=== PATIENT | male | born 1980 | race Caucasian/White ===

== ENCOUNTER 2025-08-11 12:13 | Inpatient (IN) | payer BC, SELFPAY ==
[2025-08-11] VITALS (10 sets, daily range): BP systolic 116–138; BP diastolic 89–104; PULSE 76–103; RESP 13–22; TEMP 35.9–36.8; O2SAT 96–100; BMI 25.4
--- NOTE | ~2025-08-11 | XR_ITS ---
Examination: XR chest 1V portable Clinical History: R PTX Comparison: 1 day prior Technique: Portable AP Findings: Heart size normal. Right chest tube remains in place without pneumothorax identified. Right lateral chest wall subcutaneous emphysema persists. Left lung clear. No acute bony abnormality. IMPRESSION: 1. No change or pneumothorax identified. Reviewed, dictated and finalized at location R. ATIENT DIETITIAN
--- NOTE | ~2025-08-11 | XR_ITS ---
EXAMINATION: XR chest 1V portable DATE: 08/14/2025 10:48 INDICATION: Status post right chest tube removal TECHNIQUE: frontal view of the chest was obtained. COMPARISON: Chest radiograph dated 08/14/2025 at 6:00 AM FINDINGS: Interval removal of the right chest tube. There is persistent small amount of subcutaneous emphysema along the lateral right chest wall. Tiny pneumothorax at the right costophrenic angle. No airspace opacities, pulmonary edema, pleural effusion or left-sided pneumothorax. The cardiomediastinal silhouette is normal. IMPRESSION: 1. Very small residual right pneumothorax post chest tube removal. Reviewed, dictated and finalized at location A. ECHNICIAN
--- NOTE | ~2025-08-11 | XR_ITS ---
EXAMINATION: XR chest 1V portable COMPARISON: No comparisons available. HISTORY: f/u PTX FINDINGS: The lungs are clear, no effusion. No pneumothorax. Heart is normal size. Mediastinal and hilar contours are within normal limits. Bony thorax no acute abnormality. Miscellaneous: Right chest tube terminates in the lung apex. Minimal right-sided subcutaneous air noted. Impression: Chest tube placement detailed above. No pneumothorax Reviewed, dictated and finalized at location P. METRIST ASSISTANT Impression: Chest tube placement detailed above. No pneumothorax
--- NOTE | ~2025-08-11 | XR_ITS ---
Examination: XR chest 2V Clinical History: sob Comparison: None Technique: PA and Lateral Findings: Cardiomediastinal silhouette normal size and configuration. Massive pneumothorax right side with complete collapse of lung. Minimal midline shift. Left lung clear. No acute bony abnormality. IMPRESSION: 1. Massive pneumothorax right lung. Reviewed, dictated and finalized at location R. ER SMOKING PIPE
--- NOTE | ~2025-08-11 | XR_ITS ---
EXAMINATION: XR chest 1V portable DATE: 08/13/2025 05:28 INDICATION: Pneumothorax TECHNIQUE: A single frontal view of the chest was obtained. COMPARISON: August 12 exam FINDINGS: Right apical chest tube remains in place. No pneumothorax seen on today's exam. Emphysematous changes in the subcutaneous soft tissues of the right chest wall again noted. Heart size normal. The remainder the exam is stable. IMPRESSION: 1. No pneumothorax seen on today's exam. Reviewed, dictated and finalized at location A. ICIAN IN PRIVATE PRACTICE
--- NOTE | ~2025-08-11 | XR_ITS ---
EXAMINATION: XR chest 1V portable DATE: 08/12/2025 05:42 INDICATION: Right-sided pneumothorax TECHNIQUE: A single frontal view of the chest was obtained. COMPARISON: August 11 chest x-ray FINDINGS: Right-sided chest tube appears to been withdrawn slightly. Tiny amount of pleural air at the right lung base. Emphysema in the right chest wall again noted. The remainder the exam is unremarkable. IMPRESSION: 1. Stable exam compared to yesterday. Tiny residual pneumothorax in the right lung base. Reviewed, dictated and finalized at location A. ICAL STOCK INSPECTOR IMPRESSION: 1. Stable exam compared to yesterday. Tiny residual pneumothorax in the right l nabil base.
--- NOTE | ~2025-08-11 | XR_ITS ---
EXAMINATION: XR chest-chest tube insert/pos, 08/11/2025 11:44 SOFTWARE ENGINEERING MANAGER HISTORY: tube placement COMPARISON: No comparisons available. Technique: Single view. Findings: Minimal right basilar atelectasis. Trace right basilar pneumothorax identified. Heart is normal size. Mediastinal and hilar contours are within normal limits. Bony thorax no acute abnormality. Right chest tube terminates in the lung apex. Small amount of right-sided subcutaneous air. Impression: Chest tube placement as above. Trace right basilar pneumothorax Reviewed, dictated and finalized at location P. WARE ENGINEERING MANAGER Impression: Chest tube placement as above. Trace right basilar pneumothorax
--- NOTE | 2025-08-11 12:15 | ECG_ITS ---
Test Date: 2025-08-11 12:20:23 Measurements Intervals [place] Rate: 98 P: 95 AR: 144 QRS: 66 QRSD: 86 T: 81 QT: 326 QTc: 418 Interpretive Statements SINUS RHYTHM Nonspecific ST segment abnormality Electronically Signed On 08-12-2025 00:09:16 MALARIOLOGIST by Jozef Garg D.O
[2025-08-11 12:37] LABS: Hematocrit 47.6 % (42.0-52.0); Hemoglobin 15.9 g/dL (14.0-18.0); Immature Granulocyte Percent A 0.2 % (0-0.5); Lymphocytes Absolute Auto 2.27 K/mm3 (0.9-3.2); Mean Corpuscular HGB Conc 33.4 g/dl (32-36); Mean Corpuscular Hemoglobin 30.0 pg (26-34); Mean Corpuscular Volume 89.8 fl (80-100); Nucleated Red Blood Cells Absolute Auto 0.000 K/mm3 (0.0-0.012); Nucleated Red Blood Cells Perc 0.0 % (0.0-0.2); Platelet Count Result 411 k/mm3 (150-375); Red Blood Count 5.30 M/mm3 (4.6-6.20); White Blood Count 9.6 K/mm3 (4.5-10.0)
[2025-08-11 12:49] LABS: Alanine Aminotransferase 22 U/L (6-50); Albumin Level 4.8 g/dL (3.5-5.1); Alkaline Phosphatase 109 U/L (38-126); Anion Gap 10 mmol/L (4-12); Aspartate Amino Transferase 32 U/L (17-59); Bilirubin,Total 1.1 mg/dL (0.2-1.3); Blood Urea Nitrogen 14 mg/dL (9-20); Calcium 9.4 mg/dL (8.4-10.2); Carbon Dioxide 26 mmol/L (22-30); Chloride 107 mmol/L (98-107); Estimated CRCL calculation 85 ml/min; Estimated Glomerular Filt Rate > 60; Glucose 114 mg/dL (65-110); Potassium 3.8 mmol/L (3.4-5.0); Sodium 143 mmol/L (137-145); Total Protein 8.0 g/dL (6.3-8.2)
--- OUTSIDE RECORDS SUMMARY | 2025-08-11 12:58 | XMS_ITS ---
Author Organization Unknown ENCOUNTERS Encounter Performer Location Date Diagnosis Diagnosis Status Emergency [facility] [address] [place] [address] [id number] Pre Admit [facility] [address] [place] [address] [phone] *Note: Encounters from your own facility or health system may be excluded. Allergies, Adverse Reactions, Alerts Allergen Type Severity Identification Date Medications Name Date Quantity Days Supplied GPI Number
[2025-08-11 12:59] LABS: Troponin I < 0.012 ng/mL (0.000-0.034)
[2025-08-11] MEDS: SODIUM CHLORIDE 0.9% IV 1,000 ML 125 ML IV CONT (14:08)
[2025-08-11] MEDS: ONDANSETRON INJ 4 MG/2 ML VIAL IV PUSH (14:09)
[2025-08-11] MEDS: MORPHINE SULFATE (*CRX) 4 MG/ML INJ IV PUSH (14:10)
[2025-08-11] MEDS: diazePAM INJ (*CRX) 10 MG/2 ML SYRINGE 2.5 MG IV PUSH (14:13)
--- NOTE | 2025-08-11 15:11 | ECG_ITS ---
Test Date: 2025-08-11 15:18:02 Measurements Intervals [place] Rate: 81 P: 57 NE: 146 QRS: 11 QRSD: 89 T: 33 QT: 355 QTc: 414 Interpretive Statements SINUS RHYTHM Electronically Signed On 08-12-2025 00:09:41 SCLEROSCOPE TESTER by Jozef Garg D.O
[2025-08-11 15:47] LABS: Troponin I 0.019 ng/mL (0.000-0.034)
--- NOTE | 2025-08-11 15:48 | ED.SOB ---
HPI - SOB/Dyspnea General Chief Complaint: Shortness of Breath/Dyspnea Stated Complaint: SHORT OF BREATH X1D Time Seen by Provider: 08/11/25 12:24 Source: patient Mode of arrival: ambulatory Limitations: no limitations History of Present Illness HPI Narrative: 45-year-old relatively healthy here with a complains of right-sided chest pain associated with mild shortness of breath. Patient states that he had a coughing spell a yesterday and ever since then he has been having some difficulty breathing and right-sided pain. Seen no previous history of COPD or asthma. No history of puncture lung MD elicited complaint: shortness of breath Related Data Allergies Allergy/AdvReac Type Severity Reaction Status Date / Time No Known Allergies Allergy Verified 08/11/25 12:21 PMFSH Family History Family History Grandparent Family history of malignant neoplasm Mother Carcinoma of colon Other Family history of malignant neoplasm of breast in first degree relative Social History Social History Alcohol intake: current Exam Narrative: GENERAL: Well-appearing, well-nourished, and in no acute distress. HEAD: Normocephalic, atraumatic. EYES: PERRLA and EOMI. ENT: Nares clear, no rhinorrhea or epistaxis. Mucous membranes moist. NECK: Supple. CHEST: No breath sounds on the right. No respiratory distress. HEART: Regular rate and rhythm. No murmur heard. Normal peripheral pulses. ABDOMEN: Soft, nontender, nondistended, normal active bowel sounds. EXTREMITIES: Normal range of motion. No edema. SKIN: Warm, dry, no rash. NEURO: No focal deficits. Alert and oriented x3. PSYCH: Normal mood and affect. Course Vital Signs Vital signs: Vital Signs Temperature 36.6 C 08/11/25 12:17 Pulse Rate 103 H 08/11/25 12:17 Respiratory Rate 19 08/11/25 12:17 Pulse Oximetry 96 08/11/25 12:17 Oxygen Delivery Room Air 08/11/25 12:17 Temperature 36.6 C 08/11/25 12:17 Pulse Rate 91 08/11/25 14:45 Respiratory Rate 22 H 08/11/25 14:45 Blood Pressure 134/104 H 08/11/25 14:45 Pulse Oximetry 100 08/11/25 14:45 Oxygen Delivery Room Air 08/11/25 12:24 Procedures Chest Tube Chest Tube 1: Chest Tube Date: 08/11/25 Chest Tube Location: right, anterior axillary line and fourth interspace Tube Type: cook cath Chest Tube Prep: Yes betadine prep and sterile drapes applied Anesthetic: lidocaine 2% and with epi Amount of anesthesia used (mL): 10 Procedure: sterile prep/drape Post Procedure: sutured to skin Tube Drainage: none Post Procedure CXR?: Yes Post Procedure: post CXR reviewed, placement appropriate and pneumo resolved Patient Tolerated Procedure: Yes MDM - SOB/Dyspnea Differential Diagnosis Differential diagnosis: Likely acute exacerbation of chronic obstructive airways disease, community acquired pneumonia and asthma with exacerbation Medical Records Attestation: I reviewed the patient's medical records. Lab Data Attestation: I reviewed the patient's lab results. 08/11/25 12:25 08/11/25 12:25 Labs: Lab Results 08/11/25 08/11/25 08/11/25 Range/Units 12:25 12:25 15:17 WBC 9.6 (4.5-10.0) K/mm3 RBC 5.30 (4.6-6.20) M/mm3 Hgb 15.9 (14.0-18.0) g/dL Hct 47.6 (42.0-52.0) % MCV 89.8 (80-100) fl MCH 30.0 (26-34) pg MCHC 33.4 (32-36) g/dl RDW 12.9 (11.5-14.5) % Plt Count 411 H (150-375) k/mm3 MPV 9.5 (7.4-10.4) fl Immature Gran % (Auto) 0.2 (0-0.5) % Neut % (Auto) 64.5 (45.5-73.1) % Lymph % (Auto) 23.7 (18.3-44.2) % [place] % (Auto) 8.2 (2.6-8.5) % Eos % (Auto) 2.7 (0-4.4) % Baso % (Auto) 0.7 (0.2-1.2) % Lymph # (Auto) 2.27 (0.9-3.2) K/mm3 [place] # (Auto) 0.8 H (0.1-0.6) K/mm3 Eos # (Auto) 0.3 (0-0.3) K/mm3 Baso # (Auto) 0.1 (0.0-0.1) K/mm3 Abs Immat Gran (auto) 0.02 (0.00-0.031) K/mm3 Absolute Neuts (auto) 6.2 (1.3-6.7) K/mm3 Absolute Nucleated RBC 0.000 (0.0-0.012) K/mm3 Nucleated RBC % 0.0 (0.0-0.2) % Sodium 143 (137-145) mmol/L Potassium 3.8 (3.4-5.0) mmol/L Chloride 107 (98-107) mmol/L Carbon Dioxide 26 (22-30) mmol/L Anion Gap 10 (4-12) mmol/L BUN 14 (9-20) mg/dL Creatinine 0.96 (0.7-1.3) mg/dL Estim Creat Clear Calc 85 ml/min Estimated GFR > 60 (59 - ) Glucose 114 H (65-110) mg/dL Calcium 9.4 (8.4-10.2) mg/dL Total Bilirubin 1.1 (0.2-1.3) mg/dL AST 32 (17-59) U/L ALT 22 (6-50) U/L Alkaline Phosphatase 109 (38-126) U/L Troponin I < 0.012 Cancelled 0.019 D (0.000-0.034) ng/mL Total Protein 8.0 (6.3-8.2) g/dL Albumin 4.8 (3.5-5.1) g/dL Imaging Data Radiologist's impression: ITS Impressions Chest X-Ray 08/11/25 13:08 IMPRESSION: 1. Massive pneumothorax right lung. Chest X-Ray 08/11/25 15:00 Impression: Chest tube placement as above. Trace right basilar pneumothorax ECG Data EKG #1: ECG completion date: 08/11/25 ECG completion time: 12:20 EKG Interpretation: normal rate (98), sinus rhythm, no ectopy, no ST changes, normal QRS and normal QT EKG #2: ECG completion date: 08/11/25 ECG completion time: 15:18 EKG Interpretation: normal rate, sinus rhythm, no ectopy, no ST changes, normal QRS and normal QT Critical Care Time Critical Care Time Critical Care Time: Yes Total Critical Care Time: 45 Discharge Plan Discharge Clinical Impression: Pneumothorax on right Patient Disposition: Still a Patient Condition: Stable Patient Language: Slovak Follow-up/Referrals: PHYSICIAN,SUPERVISOR BORDER DEPARTMENT [Primary Care Provider, Internal Medicine] Time of Disposition: 15:49
--- NOTE | 2025-08-11 16:30 | WPCEDHO ---
ED Hand Off Checklist All vitals saved: YES IV Site documented:YES All med administrations documented: YES Triage Note Triage Note Patient presents with SOB since 08/11/25 12:17 yesterday. states that he coughed one time and had sudden onset of right sided chest pain and has been sob since. sob worse with activity. patient states that he does cough up a clear/white sputum at times. patient is alert and oriented x4. speaking in complete sentences. Allergies No Known Allergies Allergy (Verified 08/11/25 12:21) Family History (Last Reviewed 08/11/25 @ 15:54 by Refugio Leach MD) Grandparent Family history of malignant neoplasm Mother Carcinoma of colon Other Family history of malignant neoplasm of breast in first degree relative Active Medications including assessments/comments Sodium Chloride (Normal Saline Iv) 1,000 mls @ 125 mls/hr IV CONT .Q8H STA Stop: 08/11/25 22:02 Last Admin: 08/11/25 14:08 Dose: 125 mls/hr Documented By: HUSSAIN Infusion/Titration Document 08/11/25 14:08 HUSSAIN (Rec: 08/11/25 14:08 HUSSAIN [id number]) Intake IV Site Peripheral Access Right Antecubital Container Volume 1,000 Waste Amount 0 Dosing Infusion Rate 125 Cumulative Dose Not Applicable Increase/Decrease Started Elapsed Time Elapsed Time ( 0m minutes) Administered/Completed Medications Discontinued Medications Diazepam (Diazepam Inj (*Crx) 10 Mg/2 Ml Syringe) 2.5 mg IV PUSH ONCE ONE Stop: 08/11/25 14:02 Last Admin: 08/11/25 14:13 Dose: 2.5 mg Documented By: HUSSAIN Lidocaine/Epinephrine (Lido 2%/Epinephrine 1:100,000 20 Ml Vial) 15 ml INFILTRATE ONCE ONE Stop: 08/11/25 14:04 Last Admin: 08/11/25 15:12 Dose: Not Given Documented By: HUSSAIN Non-Admin Reason: MD Administered Morphine Sulfate (Morphine Sulfate (*Crx) 4 Mg/Ml Inj) 4 mg IV PUSH ONCE STA Stop: 08/11/25 14:02 Last Admin: 08/11/25 14:10 Dose: 4 mg Documented By: HUSSAIN Ondansetron HCl (Ondansetron Inj 4 Mg/2 Ml Vial) 4 mg IV PUSH ONCE STA Stop: 08/11/25 14:02 Last Admin: 08/11/25 14:09 Dose: 4 mg Documented By: HUSSAIN Interventions/Assessments Cardiac Monitoring Start: 08/11/25 12:14 Freq: Status: Active Protocol: Document 08/11/25 12:26 KED (Rec: 08/11/25 12:26 KED [id number]) Lye Peel Operator Assessment Lye Peel Operator Yes Applied Pulse Rate (60-100) 99 EKG Rythm Sinus Rhythm IV / Saline Lock, Insert Start: 08/11/25 12:15 Freq: STAT Status: Active Protocol: Document 08/11/25 12:21 JCK (Rec: 08/11/25 12:21 JCK [id number]) IV Assessment Peripheral Access Right Antecubital IV Catheter Access Initiated IV Insertion Date 08/11/25 IV Insertion Time 12:21 Catheter Gauge 18 IV Insertion 1 Attempts IV Site Assessment WNL IV Care and WNL Maintenance PA: Cardiovascular Assessment Start: 08/11/25 12:14 Freq: Status: Active Protocol: Document 08/11/25 12:24 HUSSAIN (Rec: 08/11/25 12:25 KED [id number]) Cardiovascular Assessment Cardiovascular Chest Pain,Dyspnea Symptoms Chest Pain Assessment Chest Pain Intensity 4 Chest Pain Location Right Chest Description and Dull Symptoms Chest Pain Duration > 6 Hours Precipitating Coughing Factors Comments since yesterday around 1500 PA: Respiratory Assessment Start: 08/11/25 12:14 Freq: Status: Active Protocol: Document 08/11/25 12:24 KEVenita (Rec: 08/11/25 12:25 KED [id number]) Respiratory Assessment Symptoms Cough,Shortness of Breath at Rest,Shortness of Breath With Exertion Effort Short of Breath Pattern Tachypnea Depth Normal Chest Expansion Symmetrical Adult Capillary Normal/Less than 2 Seconds Refill Left Throughout Phase Inspiratory & Expiratory Lung Sounds Clear Right Throughout Phase Inspiratory & Expiratory Lung Sounds Diminished Cough Description Ineffective,Productive Cough Frequency Intermittent Oxygen Delivery Oxygen Delivery Room Air Pulse Oximetry (90- 97 100) Last Vital Signs Temperature 97.9 F 08/11/25 16:21 Pulse Rate 76 08/11/25 16:21 Respiratory Rate 13 08/11/25 16:21 Pulse Oximetry 99 08/11/25 16:21 Blood Pressure 134/101 H 08/11/25 16:21 Blood Pressure Mean 112 08/11/25 16:21 Oxygen Delivery Room Air 08/11/25 12:24 Weight 78.1 kg 08/11/25 12:17 Last Result - Abnormals Only Plt Count 411 k/mm3 (150-375) H 08/11/25 12:25 [place] # (Auto) 0.8 K/mm3 (0.1-0.6) H 08/11/25 12:25 Glucose 114 mg/dL (65-110) H 08/11/25 12:25 Most Recent Suicide Severity Rating Suicide Severity Rating NO RISK INDICATED 08/11/25 12:17
--- NOTE | 2025-08-11 17:10 | ADMGEN ---
This patient, Pepe Campbell, was admitted to 2 Medical Room 241-01. Patient/family oriented to hospital policies and general routines including ID bracelet, bed and alarms, visiting hours, pain management, procedures, bathroom and other care routines, personal items, smoking policy, room service/diet, and visiting hours. Information on how to activate the Rapid Response Team has been discussed. Patient/Family are encouraged to report perceived risks to care and to ask questions if they do not understand what they are told or what they should do.
[2025-08-11] MEDS: oxyCODONE HCL (*CRX) 5 MG TAB IR PO ×2 (18:08→22:35)
[2025-08-11] MEDS: SODIUM CHLORIDE 0.9% IV 1,000 ML 80 ML IV CONT (22:28)
[2025-08-12] VITALS (7 sets, daily range): BP systolic 125–134; BP diastolic 82–87; PULSE 63–81; RESP 17–18; TEMP 36.4–36.8; O2SAT 97–100
[2025-08-12] MEDS: IBUPROFEN IV 800 MG/200 ML 800 MG/200 ML BAG 400 MG IVPB ×4 (00:39→22:29)
[2025-08-12] MEDS: oxyCODONE HCL (*CRX) 2.5 MG TAB IR PO (06:17)
--- NOTE | 2025-08-12 09:49 | PM.IMHP ---
H&P: HPI History of Present Illness Date/Time: 08/12/25 09:49 Chief Complaint: Right-sided chest pain Narrative: Patient is a 45-year-old otherwise healthy male who presented to the ED yesterday with 1 day of right-sided chest pain. He states that he has a chronic cough, sometimes productive of phlegm. He coughed once yesterday and noticed immediate right-sided chest pain. Initially, he thought that this was just a pulled muscle. He was able to fall asleep and woke up in the morning with increased pain and associated shortness of breath. He states he felt like he was hyperventilating because it was difficult to take a deep breath. Once in the ED, a chest x-ray demonstrated a massive pneumothorax of the right lung. Chest tube was inserted and patient was admitted to medical-surgical floor for further management by general surgery team. Upon my interview today, patient denies any shortness of breath or pain. Chest tube appears to be functioning properly. Patient denies any trauma to the area. No falls or hits to the chest. Denies any tobacco smoking, but endorses smoking marijuana. He states that he smokes roughly 2 g of cannabis per week. No history of COPD or emphysema. No fever, chills, nausea/vomiting, or any other systemic symptoms. [facility] Family History Family History Grandparent Family history of malignant neoplasm Mother Carcinoma of colon Other Family history of malignant neoplasm of breast in first degree relative Social History Social History Smoking status: Never smoker Alcohol intake: former Substance use type: marijuana Other substance usage details: daily use Lack of Transportation: No Lack of Food: Never True Current Housing: I Have Housing Concerned About Future Housing: No Difficulty Paying Gas/Electric Bills: No Difficulty Paying for Meds: No Currently Unemployed: No Education: Associate Degree Difficulty w/ Childcare or Family Care: No Spiritual care concerns: No Meds Home Medications and Allergies Home Medications ?Medication ?Instructions ?Recorded ?Confirmed ?Type No Home Medications 08/11/25 08/11/25 History Allergies Allergy/AdvReac Type Severity Reaction Status Date / Time No Known Allergies Allergy Verified 08/11/25 17:35 Vital Signs Vital Signs - 24 hr 08/11/25 12:17 08/11/25 12:24 08/11/25 12:26 Temperature 97.9 F Pulse Rate 103 H 99 Respiratory Rate 19 Blood Pressure Pulse Oximetry 96 97 Oxygen Delivery Room Air Room Air 08/11/25 12:26 08/11/25 13:51 08/11/25 14:45 Temperature Pulse Rate 93 100 91 Respiratory Rate 19 15 22 H Blood Pressure 138/102 H 116/91 H 134/104 H Pulse Oximetry 97 97 100 Oxygen Delivery 08/11/25 16:21 08/11/25 17:01 08/11/25 18:14 Temperature 97.9 F 96.6 F L Pulse Rate 76 89 94 Respiratory Rate 13 21 H 18 Blood Pressure 134/101 H 125/98 H 137/90 Pulse Oximetry 99 99 96 Oxygen Delivery 08/11/25 19:43 08/11/25 20:00 08/11/25 20:00 Temperature 98.2 F Pulse Rate 80 84 Respiratory Rate 18 Blood Pressure 129/89 Pulse Oximetry 98 Oxygen Delivery Room Air 08/12/25 00:00 08/12/25 04:00 08/12/25 04:47 Temperature 98.3 F Pulse Rate 75 63 69 Respiratory Rate 17 Blood Pressure 128/82 Pulse Oximetry 98 Oxygen Delivery Exam Const: General: comfortable and no acute distress Eyes: General: appearance normal, both eyes and all related structures Neck: Neck: supple Chest: Other: Right-sided chest tube in place. Functioning properly with no obvious air leak. Bandage clean and dry. Resp: Effort & Inspection: normal respiratory effort Auscultation: clear to auscultation bilaterally Cardio: Rate: regular rate GI: Inspection: non-distended Skin: General skin exam: normal color and no rashes or lesions noted Neuro: Speech: normal speech Sensory Exam: normal sensation Extrem: General: normal to inspection Psych: Mental Status: mental status grossly normal H&P: Results Labs Labs: Short CBC 08/11/25 Range/Units 12:25 WBC 9.6 (4.5-10.0) K/mm3 Hgb 15.9 (14.0-18.0) g/dL Hct 47.6 (42.0-52.0) % Plt Count 411 H (150-375) k/mm3 [facility] 08/11/25 12:25 Sodium 143 Potassium 3.8 Chloride 107 Carbon Dioxide 26 BUN 14 Creatinine 0.96 Glucose 114 H Calcium 9.4 Cardiac Enzymes 08/11/25 08/11/25 08/11/25 Range/Units 12:25 12:25 15:17 Troponin I < 0.012 Cancelled 0.019 D (0.000-0.034) ng/mL Liver Function 08/11/25 Range/Units 12:25 Total Bilirubin 1.1 (0.2-1.3) mg/dL AST 32 (17-59) U/L ALT 22 (6-50) U/L Alkaline Phosphatase 109 (38-126) U/L Albumin 4.8 (3.5-5.1) g/dL Assessment and Plan Assessment and plan (1) Pneumothorax on right: Code(s): J93.9 - Pneumothorax, unspecified Status: Acute Assessment and Plan: Patient presented to the ED yesterday with 1 day of right-sided chest pain and shortness of breath after coughing. Denies any trauma to the area. No cigarette smoking, but smokes roughly 2 g of cannabis per week. Initial chest x-ray demonstrated a massive pneumothorax to the right lung. Chest tube inserted.Chest x-ray today demonstrated a stable exam compared to previous. Tiny residual pneumothorax in the right lung base. Continue chest tube to suction today. Will plan to place to water seal tomorrow. Plan Discussed patient's case and plan of care with Dr. George.
[2025-08-12] MEDS: ENOXAPARIN 40 MG/0.4 ML SYRINGE SUB-Q (10:13)
[2025-08-13 03:20] VITALS: BP 141/86; PULSE 69; RESP 18; TEMP 36.4; O2SAT 98
[2025-08-13 07:36] VITALS: O2SAT 99
[2025-08-13] MEDS: IBUPROFEN IV 800 MG/200 ML 800 MG/200 ML BAG 400 MG IVPB ×2 (07:36→18:17)
[2025-08-13 08:31] VITALS: O2SAT 97
[2025-08-13] MEDS: ENOXAPARIN 40 MG/0.4 ML SYRINGE SUB-Q (09:06)
--- NOTE | 2025-08-13 09:06 | P.PNGS_ITS ---
Progress Note: A&P Assessment and Plan (1) Pneumothorax on right: Code(s): J93.9 - Pneumothorax, unspecified Status: Acute Assessment and Plan: * CXR this morning showed no residual pneumothorax and chest tube still in good position. No pleural leak on exam. * Put chest tube to water seal and repeat chest x-ray in 1-2 hours. Likely will keep chest tube to water seal today and monitor. Plan Discussed patient's case and plan of care with Dr. George. Subjective Subjective Date/Time Seen: 08/13/25 09:06 Patient reports: no new complaints Interval history: No changes overnight. Patient has some pain at the chest tube site, but no other chest pain. No shortness of breath or difficulty breathing. Exam Const: General: comfortable and no acute distress Chest: Chest palpation & inspection: no crepitus Other: Right lateral chest tube with dressing dry and intact. No air leak. Minimal yellow serous fluid in canister. Resp: Effort & Inspection: normal respiratory effort and no respiratory distress Auscultation: clear to auscultation bilaterally Cardio: Rate: regular rate Rhythm: regular rhythm Objective Data Vital Signs Vital Signs: Vital Signs - 24 hr 08/12/25 10:13 08/12/25 10:13 08/12/25 12:00 Temperature Pulse Rate 69 69 81 Respiratory Rate 17 Blood Pressure Pulse Oximetry 98 Oxygen Delivery Room Air 08/12/25 14:00 08/12/25 19:51 08/12/25 20:00 Temperature 97.8 F 97.6 F Pulse Rate 78 72 Respiratory Rate 18 18 Blood Pressure 134/87 125/87 Pulse Oximetry 100 97 Oxygen Delivery Room Air 08/13/25 03:20 08/13/25 07:36 08/13/25 08:31 Temperature 97.6 F Pulse Rate 69 Respiratory Rate 18 Blood Pressure 141/86 H Pulse Oximetry 98 99 97 Oxygen Delivery Room Air Room Air Intake/Output Intake/Output: Intake & Output 08/10/25 08/11/25 08/12/25 08/13/25 23:59 23:59 23:59 23:59 Intake Total 480 2220 408 Output Total 7555 300 Balance 480 -2255 108 Meds/Results Medications: Active Medications Generic Name Dose Route Start Last Admin Trade Name Freq PRN Reason Stop Dose Admin Acetaminophen 500 mg 08/11/25 17:05 Acetaminophen 500 Mg Tablet PO Q6H PRN Pain Rated 1-3 Enoxaparin Sodium 40 mg 08/12/25 09:00 08/12/25 10:13 Enoxaparin 40 Mg/0.4 Ml Syringe SUB-Q 40 mg DAILY SOPHIE Administration Ibuprofen 800 mg in 200 mls @ 400 mls/hr 08/11/25 17:05 08/13/25 07:36 Caldolor 800 Mg/200 Ml IVPB 400 mls/hr Q6H PRN Administration Breakthrough Pain Rated 1-3 or NPO Morphine Sulfate 1 mg 08/11/25 17:05 Morphine Sulfate (*Crx) 4 Mg/Ml Inj IV PUSH Q2H PRN Breakthrough Pain Rated 4-6 or NPO Morphine Sulfate 2 mg 08/11/25 17:05 Morphine Sulfate (*Crx) 4 Mg/Ml Inj IV PUSH Q2H PRN Breakthrough Pain Rated 7-10 or NPO Ondansetron HCl 4 mg 08/11/25 15:27 Ondansetron Inj 4 Mg/2 Ml Vial IV PUSH Q4H PRN Nausea Oxycodone HCl 2.5 mg 08/11/25 17:05 08/12/25 06:17 Oxycodone Hcl (*Crx) 2.5 Mg Tab Ir PO 2.5 mg Q4H PRN Administration Pain Rated 4-6 Oxycodone HCl 5 mg 08/11/25 17:05 08/11/25 22:35 Oxycodone Hcl (*Crx) 5 Mg Tab Ir PO 5 mg Q4H PRN Administration Pain Rated 7-10 Radiology Results: ITS Impressions Chest X-Ray 08/13/25 07:58 IMPRESSION: 1. No pneumothorax seen on today's exam.
--- NOTE | 2025-08-13 11:50 | PC.NURSE ---
On 08/13/25, the student, [Tomas Correia], provided care and completed [facility] documentation on this patient. I have reviewed the student's documentation and agree with the findings.
[2025-08-13 14:00] VITALS: BP 142/82; PULSE 82; RESP 16; TEMP 36.4; O2SAT 100
[2025-08-13 19:51] VITALS: BP 134/86; PULSE 82; RESP 20; TEMP 37.1; O2SAT 99
[2025-08-14 03:57] VITALS: BP 137/81; PULSE 69; RESP 18; TEMP 36.2; O2SAT 99
[2025-08-14 08:34] LABS: Hematocrit 42.6 % (42.0-52.0); Hemoglobin 14.6 g/dL (14.0-18.0); Immature Granulocyte Percent A 0.2 % (0-0.5); Lymphocytes Absolute Auto 1.48 K/mm3 (0.9-3.2); Mean Corpuscular HGB Conc 34.3 g/dl (32-36); Mean Corpuscular Hemoglobin 30.2 pg (26-34); Mean Corpuscular Volume 88.0 fl (80-100); Nucleated Red Blood Cells Absolute Auto 0.000 K/mm3 (0.0-0.012); Nucleated Red Blood Cells Perc 0.0 % (0.0-0.2); Platelet Count Result 320 k/mm3 (150-375); Red Blood Count 4.84 M/mm3 (4.6-6.20); White Blood Count 8.1 K/mm3 (4.5-10.0)
[2025-08-14] MEDS: ENOXAPARIN 40 MG/0.4 ML SYRINGE SUB-Q (08:43)
[2025-08-14 09:09] LABS: Alanine Aminotransferase 16 U/L (6-50); Albumin Level 4.3 g/dL (3.5-5.1); Alkaline Phosphatase 87 U/L (38-126); Anion Gap 7 mmol/L (4-12); Aspartate Amino Transferase 24 U/L (17-59); Bilirubin,Total 0.9 mg/dL (0.2-1.3); Blood Urea Nitrogen 13 mg/dL (9-20); Calcium 9.3 mg/dL (8.4-10.2); Carbon Dioxide 28 mmol/L (22-30); Chloride 104 mmol/L (98-107); Estimated CRCL calculation 97 ml/min; Estimated Glomerular Filt Rate > 60; Glucose 93 mg/dL (65-110); Potassium 4.1 mmol/L (3.4-5.0); Sodium 139 mmol/L (137-145); Total Protein 7.2 g/dL (6.3-8.2)
[2025-08-14 14:00] VITALS: BP 131/94; PULSE 82; RESP 20; TEMP 36.5; O2SAT 100
--- NOTE | 2025-08-14 14:41 | P.PNGS_ITS ---
Progress Note: A&P Assessment and Plan (1) Pneumothorax on right: Code(s): J93.9 - Pneumothorax, unspecified Status: Acute Assessment and Plan: * Chest tube removed this morning after initial chest x-ray showed no pneumothorax. Repeat chest x-ray showed tiny right pneumothorax at costophrenic angle. I'm not able to even visualize this myself. We spoke with Dr. George and will discharge the patient with strict return instructions and have him follow-up in 2 weeks in our office. Plan Discussed patient's case and plan of care with Dr. George. Subjective Subjective Date/Time Seen: 08/14/25 09:01 Patient reports: no new complaints Interval history: Patient with no changes overnight. No complaints of chest pain or shortness of breath. Only having minimal pain near his chest tube. Exam Const: General: comfortable and no acute distress Orientation/consciousness: patient oriented x3 Chest: Chest palpation & inspection: no crepitus Other: Right lateral chest tube with dressing dry and intact. No air leak. Minimal yellow serous fluid in canister. Suture and chest tube removed with sterile technique and occlusive sterile dressing applied. He tolerated this well. Resp: Effort & Inspection: normal respiratory effort Auscultation: clear to auscultation bilaterally Objective Data Vital Signs Vital Signs: Vital Signs - 24 hr 08/13/25 19:51 08/13/25 20:00 08/14/25 03:57 Temperature 98.7 F 97.2 F L Pulse Rate 82 69 Respiratory Rate 20 18 Blood Pressure 134/86 137/81 Pulse Oximetry 99 99 Oxygen Delivery Room Air 08/14/25 08:45 Temperature Pulse Rate Respiratory Rate Blood Pressure Pulse Oximetry Oxygen Delivery Room Air Intake/Output Intake/Output: Intake & Output 08/11/25 08/12/25 08/13/25 08/14/25 23:59 23:59 23:59 23:59 Intake Total 480 2220 2008 1200 Output Total 4475 1800 300 Balance 480 -2255 208 900 Meds/Results Medications: Active Medications Generic Name Dose Route Start Last Admin Trade Name Freq PRN Reason Stop Dose Admin Acetaminophen 500 mg 08/11/25 17:05 Acetaminophen 500 Mg Tablet PO Q6H PRN Pain Rated 1-3 Enoxaparin Sodium 40 mg 08/12/25 09:00 08/14/25 08:43 Enoxaparin 40 Mg/0.4 Ml Syringe SUB-Q 40 mg DAILY SOPHIE Administration Ibuprofen 800 mg in 200 mls @ 400 mls/hr 08/11/25 17:05 08/13/25 18:47 Caldolor 800 Mg/200 Ml IVPB Infused Q6H PRN Infusion Breakthrough Pain Rated 1-3 or NPO Morphine Sulfate 1 mg 08/11/25 17:05 Morphine Sulfate (*Crx) 4 Mg/Ml Inj IV PUSH Q2H PRN Breakthrough Pain Rated 4-6 or NPO Morphine Sulfate 2 mg 08/11/25 17:05 Morphine Sulfate (*Crx) 4 Mg/Ml Inj IV PUSH Q2H PRN Breakthrough Pain Rated 7-10 or NPO Ondansetron HCl 4 mg 08/11/25 15:27 Ondansetron Inj 4 Mg/2 Ml Vial IV PUSH Q4H PRN Nausea Oxycodone HCl 2.5 mg 08/11/25 17:05 08/12/25 06:17 Oxycodone Hcl (*Crx) 2.5 Mg Tab Ir PO 2.5 mg Q4H PRN Administration Pain Rated 4-6 Oxycodone HCl 5 mg 08/11/25 17:05 08/11/25 22:35 Oxycodone Hcl (*Crx) 5 Mg Tab Ir PO 5 mg Q4H PRN Administration Pain Rated 7-10 Radiology Results: ITS Impressions Chest X-Ray 08/14/25 10:52 IMPRESSION: 1. Very small residual right pneumothorax post chest tube removal. Labs Labs: Laboratory Results - last 24 hr 08/14/25 08:15 WBC 8.1 RBC 4.84 Hgb 14.6 Hct 42.6 MCV 88.0 MCH 30.2 MCHC 34.3 RDW 12.7 Plt Count 320 MPV 9.6 Immature Gran % (Auto) 0.2 Neut % (Auto) 69.8 Lymph % (Auto) 18.2 L [place] % (Auto) 7.5 Eos % (Auto) 3.4 Baso % (Auto) 0.9 Lymph # (Auto) 1.48 [place] # (Auto) 0.6 Eos # (Auto) 0.3 Baso # (Auto) 0.1 Abs Immat Gran (auto) 0.02 Absolute Neuts (auto) 5.7 Absolute Nucleated RBC 0.000 Nucleated RBC % 0.0 Sodium 139 Potassium 4.1 Chloride 104 Carbon Dioxide 28 Anion Gap 7 BUN 13 Creatinine 0.83 Estim Creat Clear Calc 97 Estimated GFR > 60 Glucose 93 Calcium 9.3 Total Bilirubin 0.9 AST 24 ALT 16 Alkaline Phosphatase 87 Total Protein 7.2 Albumin 4.3
--- NOTE | 2025-08-14 14:50 | PM.DS ---
DS: Admitting Diagnosis Discharge Date 08/14/2025 Admitting Diagnosis Complete right pneumothorax DS: Discharge Diagnosis Discharge Diagnosis (1) Pneumothorax on right: Code(s): J93.9 - Pneumothorax, unspecified Status: Acute DS: Summary Hospital Course Reason for hospitalization: Patient is a 45-year-old male who presented to the ED with 1 day of right-sided chest pain. The day before, he had an aggressive cough and noticed immediate right-sided chest pain. Initially, he thought that this was just a pulled muscle. He had persistent chest pain and developed shortness of breath. He does not smoke cigarettes but does endorse smoking marijuana about 2 g per week. Once in the ED, a chest x-ray demonstrated a massive pneumothorax of the right lung. Chest tube was inserted and patient was admitted to medical-surgical floor for further management by general surgery team. Hospital Course: Patient was monitored with serial chest x-rays and his chest tube was initially kept to suction for over 24 hours. His chest tube was eventually put to water seal for 24 hours and rechecked with a chest x-ray that showed no pneumothorax. His chest tube was then removed this morning and repeat chest x-ray an hour later showed a tiny right pneumothorax at the costophrenic angle. The patient's case and treatment plan were discussed with Dr. George and he is being discharged today. He was provided strict return instructions. He will follow-up with Dr. George in 2 weeks. Status at Discharge Functional status at discharge: independent ambulation Overall status at discharge: patient is progressing back to baseline Time Spent with Patient Time attestation: Total time spent providing and/or coordinating discharge services: DS: Data Data Completed and Pending Labs on day of discharge: Labs from last 24 hours 08/14/25 08:15 WBC 8.1 RBC 4.84 Hgb 14.6 Hct 42.6 MCV 88.0 MCH 30.2 MCHC 34.3 RDW 12.7 Plt Count 320 MPV 9.6 Immature Gran % (Auto) 0.2 Neut % (Auto) 69.8 Lymph % (Auto) 18.2 L [place] % (Auto) 7.5 Eos % (Auto) 3.4 Baso % (Auto) 0.9 Lymph # (Auto) 1.48 [place] # (Auto) 0.6 Eos # (Auto) 0.3 Baso # (Auto) 0.1 Abs Immat Gran (auto) 0.02 Absolute Neuts (auto) 5.7 Absolute Nucleated RBC 0.000 Nucleated RBC % 0.0 Sodium 139 Potassium 4.1 Chloride 104 Carbon Dioxide 28 Anion Gap 7 BUN 13 Creatinine 0.83 Estim Creat Clear Calc 97 Estimated GFR > 60 Glucose 93 Calcium 9.3 Total Bilirubin 0.9 AST 24 ALT 16 Alkaline Phosphatase 87 Total Protein 7.2 Albumin 4.3 Imaging Radiologist's impression: ITS Impressions Chest X-Ray 08/11/25 13:08 IMPRESSION: 1. Massive pneumothorax right lung. Chest X-Ray 08/11/25 15:00 Impression: Chest tube placement as above. Trace right basilar pneumothorax Chest X-Ray 08/12/25 07:51 IMPRESSION: 1. Stable exam compared to yesterday. Tiny residual pneumothorax in the right lung base. Chest X-Ray 08/13/25 07:58 IMPRESSION: 1. No pneumothorax seen on today's exam. Chest X-Ray 08/13/25 09:55 Impression: Chest tube placement detailed above. No pneumothorax Chest X-Ray 08/14/25 07:54 IMPRESSION: 1. No change or pneumothorax identified. Chest X-Ray 08/14/25 10:52 IMPRESSION: 1. Very small residual right pneumothorax post chest tube removal. Discharge Plan Discharge Attending physician on discharge: Tre George Consulting providers: Keshav Hawk Discharging Clinician: Elba Tan Anticipated Discharge Date/Time: 08/14/25 13:51 Patient Disposition: Home Activity: no shower Diet: regular Wound Care Instructions: follow printed instructions Discharge Instructions: Leave dressing on for 3 days. Do not shower or soak in any body of water during this time. After 3 days, you may remove bandage and leave it open to air or cover with a bandaid until dry. Call the general surgery office at to schedule a follow up appointment with Dr. George in 2 weeks. Call this same number with any questions or concerns. Avoid strenuous activity, heavy lifting, and contact sports until cleared by general surgeon. Do not fly in an airplane or go scuba diving until doctor confirms that your lung is fully healed. Quitting smoking of any kind (tobacco, marijuana, vape) is strongly advised as smoking increases the risk of another pneumothorax. Return to emergency department immediately if you develop any sudden chest pain, shortness of breath, rapid heartbeat, or fainting. Patient Instructions: Antibiotic Form Patient Language: Bangladeshi Stand Alone Forms: General Discharge Information Follow-up/Referrals: Tre George MD [Physician, General Surgery] - Call for Appointment Referral Note: 2 weeks Discharge Medications: No Action No Home Medications Date of admission: 08/11/25 15:27 Primary Care Provider: PHYSICIAN,ADULT MANAGER Admitting Provider: Tre George Attending physician on admission: Tre George Condition: Stable Quality VTE Prophylaxis VTE prophylaxis: pharmacologic ordered
== END 2025-08-14 15:37 | disposition home or self-care (01) | DRG 201 ==
LOC: ANHED 15:56 → ANH2MED 16:26
PROVIDERS: Student in an Organized Health Care Education/Training Program; Admitting Provider Surgery; Emergency Provider Family Medicine; Visit Provider Nurse Practitioner Family
DX: J93.83 Other pneumothorax (principal); F10.91 Alcohol use, unspecified, in remission; F12.90 Cannabis use, unspecified, uncomplicated
CPT/HCPCS: 32551; 36415; 71045; 71046; 80053; 84484; 85025; 93005; 96374; 96375; 99291; A9270; C1729; J1650; J1741; J2270; J2405; J3360; J7030

== ENCOUNTER 2025-09-06 14:45 | Outpatient (CLI) | payer BC, SELFPAY ==
--- NOTE | ~2025-09-06 | CT_ITS ---
EXAMINATION:CT diagnostic chest w con DATE: 09/06/2025 15:21 INDICATION: 45-year-old with chronic cough. Prior history of pneumothorax. TECHNIQUE: Computed tomography (CT) of the chest was performed with 100 cc intravenous contrast. Automated exposure control and iterative reconstruction technique were employed. The dose-length product (DLP) was 193.72 mGy-cm. COMPARISON: Chest x-ray dated 08/13/2025 FINDINGS: No focal lesions of supraclavicular fossa. Significant paraseptal emphysema of lungs is noted with subpleural bullae predominantly at the right apex. No solid pulmonary mass or nodule. No hilar or mediastinal adenopathy. No evidence of pleural or pericardial effusion or pneumothorax. IMPRESSION: 1. Emphysematous changes of lungs with subpleural bullae predominantly at the right apex. 2. No lymphadenopathy or effusion or focal pulmonary mass. Reviewed, dictated and finalized at location [employer] PROF[employer] IMPRESSION: 1. Emphysematous changes of lungs with subpleural bullae predominantly at the r ight apex. 2. No lymphadenopathy or effusion or focal pulmonary mass.
== END 2025-09-06 14:46 | disposition home or self-care (01) ==
PROVIDERS: PCP Nurse Practitioner Adult Health; Visit Provider Nurse Practitioner Adult Health
DX: R05.3 Chronic cough (principal); J43.9 Emphysema, unspecified; Z87.891 Personal history of nicotine dependence; Z87.09 Personal history of other diseases of the respiratory system
CPT/HCPCS: 71260; Q9967

== ENCOUNTER 2025-09-18 00:44 | Day surgery (SDC) | payer BC, SELFPAY ==
[2025-09-02 13:08] VITALS: BMI 26.6
[2025-09-18 10:27] VITALS: BP 125/95; PULSE 82; RESP 16; TEMP 36.5; O2SAT 98
[2025-09-18] MEDS: LACTATED RINGERS 1,000 ML 150 ML IV CONT (10:38)
--- NOTE | 2025-09-18 11:29 | P.PNAN_ITS ---
Anes - Initial Pre Proc Eval Procedure: Operation Date: 09/18/25 11:30 Proposed Procedures p Screening Colonoscopy - Chandan Osorio MD Date/Time: 09/18/25 11:29 Surgeon: Chandan Osorio MD Pre Op Diagnosis: Encounter for screening for malignant neoplasm of Patient Data Age: 45 Gender: M Height: 1.73 m Weight: 78 kg Last Vital Signs Temp 36.5 C 09/18/25 10:27 Pulse 82 09/18/25 10:27 Resp 16 09/18/25 10:27 BP 125/95 H 09/18/25 10:27 Pulse Ox 98 09/18/25 10:27 O2 Del Method Room Air 09/18/25 10:27 Allergies Allergy/AdvReac Type Severity Reaction Status Date / Time No Known Allergies Allergy Verified 09/18/25 10:27 Home Medications ?Medication ?Instructions ?Recorded ?Confirmed ?Type No Home Medications 08/11/25 09/02/25 H istory Patient hx anesthesia problems: none Family hx anesthesia problems: none Results Review: All pre-operative results and documents have been reviewed as part of the pre- operative evaluation. [facility] Past Medical History Medical History Former heavy tobacco smoker H/O fracture of wrist age 16 Family history of colon cancer Kidney stones Surgical History Surgical History No pertinent past surgical history Family History Family History Grandparent Carcinoma of colon Mother Carcinoma of colon Grandparent Cerebrovascular accident Other Family history of malignant neoplasm of breast in first degree relative Social History Social History Smoking status: Former smoker Tobacco type: cigarettes Alcohol intake: former Substance use: current Substance use type: marijuana Other substance usage details: daily Lack of Transportation: No Lack of Food: Never True Current Housing: I Have Housing Concerned About Future Housing: No Difficulty Paying Gas/Electric Bills: No Difficulty Paying for Meds: No Currently Unemployed: No Education: High School Diploma/GED Difficulty w/ Childcare or Family Care: No Living arrangements: with family Occupation/Education: occupation Additional occupation/education comments: [email or web address] Spiritual care concerns: No Agree to blood products: Yes Anes - Eval Final PreProcedure Day of Procedure 09/18/25 11:29 Patient weight: overweight Heart: regular rate and rhythm Lungs: decreased breath sounds Airway: Mallampati scale class II Neurological: alert and oriented Last oral intake: >/= 8 hours ASA classification: III Emergent: no Anesthetic plan: proceed Anesthesia type and monitoring: general GIVS and standard monitoring Results Review: All pre-operative results and documents have been reviewed as part of the pre- operative evaluation. Informed Consent: The patient's anesthetic plan and its attendant risks and benefits were discussed with the patient/family/POA. Questions were solicited and answers provided to the satisfaction of the patient/family/POA.
--- NOTE | 2025-09-18 11:29 | P.HP_ITS ---
History of Present Illness History of Present Illness Consent: Risks, benefits, and alternatives have been discussed and questions answered. Patient agrees to proceed with procedure. Chief complaint: Encounter for screening for malignant neoplasm of Narrative: Pepe Campbell is a 45 year old male here for first screening colonoscopy Review of Systems Review of Systems: All systems reviewed & are unremarkable except as noted in HPI and below PMFSH Past Medical History Medical History Former heavy tobacco smoker H/O fracture of wrist age 16 Family history of colon cancer Kidney stones Surgical History Surgical History No pertinent past surgical history Family History Family History Grandparent Carcinoma of colon Mother Carcinoma of colon Grandparent Cerebrovascular accident Other Family history of malignant neoplasm of breast in first degree relative Social History Social History Smoking status: Former smoker Tobacco type: cigarettes Alcohol intake: former Substance use: current Substance use type: marijuana Other substance usage details: daily Lack of Transportation: No Lack of Food: Never True Current Housing: I Have Housing Concerned About Future Housing: No Difficulty Paying Gas/Electric Bills: No Difficulty Paying for Meds: No Currently Unemployed: No Education: High School Diploma/GED Difficulty w/ Childcare or Family Care: No Living arrangements: with family Occupation/Education: occupation Additional occupation/education comments: [employer] Spiritual care concerns: No Agree to blood products: Yes Meds Home Medications and Allergies Home Medications ?Medication ?Instructions ?Recorded ?Confirmed ?Type No Home Medications 08/11/25 09/02/25 H istory Allergies Allergy/AdvReac Type Severity Reaction Status Date / Time No Known Allergies Allergy Verified 09/18/25 10:27 Vital Signs Vital Signs - 24 hr 09/18/25 10:27 Temperature 97.7 F Pulse Rate 82 Respiratory Rate 16 Blood Pressure 125/95 H Pulse Oximetry 98 Oxygen Delivery Room Air Exam Const: General: comfortable and no acute distress HENMT: Face/Nose/Sinus: Normal nares present Eyes: General: appearance normal, both eyes and all related structures Neck: Neck: no JVD Resp: Auscultation: clear to auscultation bilaterally Cardio: Rate: regular rate Rhythm: regular rhythm GI: Inspection: non-distended GI Palp: Yes Soft to palpation Skin: General skin exam: normal color Psych: Mental Status: mental status grossly normal Assessment and Plan Assessment and plan (1) Family history of colon cancer: Code(s): Z80.0 - Family history of malignant neoplasm of digestive organs Status: Acute Assessment and Plan: colonoscopy
[2025-09-18 11:42] VITALS: BP 106/68; PULSE 77; RESP 23; O2SAT 99
[2025-09-18 11:52] VITALS: BP 110/85; PULSE 71; RESP 26; O2SAT 97
[2025-09-18 12:02] VITALS: BP 116/75; PULSE 77; RESP 26; O2SAT 97
[2025-09-18 12:12] VITALS: BP 120/90; PULSE 74; RESP 23; O2SAT 98
== END 2025-09-18 12:27 | disposition home or self-care (01) ==
PROVIDERS: PCP Nurse Practitioner Adult Health; Referring Provider Nurse Practitioner Adult Health; Visit Provider Internal Medicine Gastroenterology
PROC: 0DJD8ZZ Inspection of Lower Intestinal Tract, Via Natural or Artificial Opening Endoscopic (ICD-10-PCS; CPT 45378; principal; 2025-09-18 11:30)
DX: Z12.11 Encounter for screening for malignant neoplasm of colon (principal); Z80.0 Family history of malignant neoplasm of digestive organs; K57.30 Diverticulosis of large intestine without perforation or abscess without bleeding; K64.8 Other hemorrhoids; Z87.891 Personal history of nicotine dependence
CPT/HCPCS: 45378; J2704; J7120